=== PATIENT | female | born 1945 | race Caucasian/White ===

== ENCOUNTER 2020-11-28 16:15 | Emergency (ER) | payer MEDICARE, SELFPAY ==
--- NOTE | ~2020-11-28 | XR_ITS ---
EXAMINATION: XR CHEST CLINICAL INFORMATION: Weakness. Dizziness. Chills. COMPARISON: None TECHNIQUE: 2 views of the chest were obtained. FINDINGS: No significant abnormality is noted involving the heart, lungs, mediastinum, bony thorax or soft tissues. XR/XR chest 2V IMPRESSION: Unremarkable examination.
[2020-11-28 17:10] VITALS: BP 194/86; PULSE 79; RESP 16; TEMP 37.1; O2SAT 99; BMI 25.1
--- NOTE | 2020-11-28 17:19 | ECG_ITS ---
Test Reason : WEAKNESS Blood Pressure : / mmHG Vent. Rate : 072 BPM Atrial Rate : 072 BPM P-R Int : 140 ms QRS Dur : 074 ms QT Int : 396 ms P-R-T Axes : 066 -37 052 degrees QTc Int : 433 ms Normal sinus rhythm Left axis deviation Minimal voltage criteria for LVH, may be normal variant Abnormal ECG No previous ECGs available Referred By: Generic ED Physician Electronically Signed By:Mingo Zelaya
[2020-11-28 18:32] LABS: MANUAL DIFF FLAG NO
[2020-11-28 18:40] LABS: Basophils Percent Auto 0.3 % (0-2); Eosinophils Absolute Auto 0.1 X10*3/uL (0.0-0.4); Hematocrit 35.9 % (37-47); Hemoglobin 11.8 g/dl (12.0-16.0); Imm Gran Abs Auto 0.01 X10*3/uL (0.00-0.03); Imm Gran Pct Auto 0.2 % (0.0-0.4); Lymphocytes Absolute Auto 1.8 X10*3/uL (1.2-4.9); Lymphocytes Percent Auto 29.2 % (20-40); Mean Corpuscular HGB Conc 32.9 g/dl (31.0-35.0); Mean Corpuscular Hemoglobin 27.6 pg (27.0-33.0); Mean Corpuscular Volume 84.1 fL (80-98); Mean Platelet Volume 9.9 fL (9.4-12.3); Monocytes Absolute Auto 0.5 X10*3/uL (0.1-1.2); Monocytes Percent Auto 7.4 % (2-11); Neutrophils Absolute Auto 3.7 X10*3/uL (2.0-8.3); Neutrophils Percent Auto 60.9 % (45-73); Platelet Count 246 X10*3/uL (160-400); Red Blood Count 4.27 X10*6/uL (4.20-5.50); Red Cell Distribution Width 12.7 % (11.0-16.0); White Blood Count 6.1 X10*3/uL (4.8-10.8)
[2020-11-28 18:56] LABS: Anion Gap 13 (12-20); Blood Urea Nitrogen 12 mg/dL (9-16); Calcium 9.6 mg/dL (8.4-10.2); Carbon Dioxide 30 mmol/L (22-29); Chloride 99 mmol/L (96-108); Estimated Glomerular Filt Rate > 60; Glucose Random 192 mg/dL (60-115); Potassium 4.4 mmol/L (3.3-5.1); Sodium 138 mmol/L (135-145)
[2020-11-28 20:00] VITALS: BP 194/81; PULSE 76; RESP 16; TEMP 37.2; O2SAT 99
[2020-11-28 20:33] VITALS: BP 194/81; BP 209/79; PULSE 74; PULSE 97
[2020-11-28 20:34] VITALS: BP 205/80; PULSE 77
--- NOTE | 2020-11-28 20:46 | PC.NURSE ---
This is an alert and oriented patient, walked into the emergency room #12 with a standby assist- patient states dizziness began last night and has also had some intermittent nausea and vomiting. Patient placed on the product demonstrator, vital signs obtained, IV placed into the left AC, orthostatic vital signs done, patient has mild diffuse mid abdominal pain. No other complaints at this time.
[2020-11-28 20:53] LABS: Alanine Aminotransferase 14 U/L (0-31); Albumin Level 4.2 g/dL (3.5-5.0); Alkaline Phosphatase 103 U/L (39-117); Aspartate Amino Transferase 15 U/L (5-31); Bilirubin Direct 0.2 mg/dL (0.0-0.5); Bilirubin Total 0.7 mg/dL (0.0-1.0); Lipase 12 U/L (8-78); Total Protein 6.7 g/dL (6.5-8.0)
--- NOTE | 2020-11-28 21:13 | ED.GENADULT ---
HPI - General Adult General Chief complaint: Dizziness Stated complaint: dizzyness,nausea,abdominal pain Time Seen by Provider: 11/28/20 20:37 Source: patient Mode of arrival: ambulatory Limitations: no limitations History of Present Illness HPI narrative: Patient fully COVID-19 vaccinated 1 month ago complaining of dizziness weakness nausea vomiting since yesterday everything started all of a sudden patient does have history of vertigo patient feels everything spinning around no fever no significant abdominal pain patient denies any headache no tinnitus no upper respiratory symptoms no cough or shortness of breath Related Data Previous Rx's Medication Instructions Recorded cefuroxime axetil 500 mg PO BID 7 Days #14 tab 11/28/20 meclizine 25 mg PO TID PRN #20 tab 11/28/20 Allergies Allergy/AdvReac Type Severity Reaction Status Date / Time Penicillins Allergy Anaphylaxis Verified 11/28/20 17:16 Review of Systems Review of Systems: Constitutional : No Weight loss, No Fever, No Chills ENT/Mouth : No sore throat, No Rhinorrhea Eyes: No Eye Pain, No Swelling Cardiovascular : No Chest Pain, no palpitations Respiratory : No Cough, No Sputum, no shortness of breath Gastrointestinal : no Nausea, No Vomiting, No Diarrhea, No abdominal Pain, no black stools Genitourinary : No Dysuria, No Urinary Frequency Musculoskeletal : No joint pain, No Myalgias, No Joint Swelling Skin : No Skin Lesions, No rash Neuro : No Weakness, No Numbness, ++Dizziness, No Headache Psych : No Anxiety/Panic, No Depression Heme/Lymph: No Bruising, No Lymphadenopathy Endocrine : No Polyuria, No Polydipsia All other systems reviewed and are negative FOR[facility]LY [facility] Past Medical History Medical History Diabetes Incontinent of urine Social History Social History Alcohol intake: current Alcohol intake frequency: holidays/special occasions only Alcohol type: beer and wine Smoking Status: Never smoker Smoked in Last 30 Days: No Use of substances other than those prescribed or required for medical reasons: No Advance Directives: No Advance Directives Information Provided: Yes Physical Exam Vital Signs: Vital Signs: Last Vital Signs Temp 98.9 F 11/28/20 20:00 Pulse 79 04/19/21 23:33 Resp 17 11/28/20 23:33 BP 172/75 H 11/28/20 23:33 Pulse Ox 100 11/28/20 23:33 Body Mass Index 25.1 Appearance: Alert. Oriented X3. No acute distress. Eyes: Pupils equal, round and reactive to light. No nystagmus ENT: Pharynx normal. Neck: Normal inspection. Neck supple. CVS: Normal heart rate and rhythm. Pulses normal. Respiratory: No respiratory distress. Breath sounds normal. Abdomen: Soft and nontender. Bowel sounds are present, no mass palpable, no CVA tenderness Skin: Skin warm and dry. Normal skin color. Normal skin turgor. Extremities: No lower extremity edema. No calf tenderness Neuro: Oriented X 3. No motor deficit. No sensory deficit. No cerebellar signs Medical Decision Making MDM Narrative Medical decision making narrative: Patient clinically benign positional vertigo with similar history in the past. Labs stable. Will give meclizine , check urine and re-evaluate Patient's lab workup showed leuko esterase positive in the urine 10-14 wbc's patient denies any symptoms. Will discharge patient home on meclizine and Ceftin patient started feeling better now Lab Data Lab results reviewed: Yes I reviewed the patient's lab results. Result diagrams: 11/28/20 18:14 11/28/20 18:14 Labs: Lab Results 11/28/20 11/28/20 11/28/20 Range/Units 18:14 18:14 18:14 WBC 6.1 (4.8-10.8) X10*3/uL RBC 4.27 (4.20-5.50) X10*6/uL Hgb 11.8 L (12.0-16.0) g/dl Hct 35.9 L (37-47) % MCV 84.1 (80-98) fL MCH 27.6 (27.0-33.0) pg MCHC 32.9 (31.0-35.0) g/dl RDW 12.7 (11.0-16.0) % Plt Count 246 (160-400) X10*3/uL MPV 9.9 (9.4-12.3) fL Immature Gran % (Auto) 0.2 (0.0-0.4) % Neut % (Auto) 60.9 (45-73) % Lymph % (Auto) 29.2 (20-40) % Jessamine % (Auto) 7.4 (2-11) % Eos % (Auto) 2.0 (0-4) % Baso % (Auto) 0.3 (0-2) % Lymph # (Auto) 1.8 (1.2-4.9) X10*3/uL Jessamine # (Auto) 0.5 (0.1-1.2) X10*3/uL Eos # (Auto) 0.1 (0.0-0.4) X10*3/uL Baso # (Auto) 0.0 (0.0-0.2) X10*3/uL Abs Immat Gran (auto) 0.01 (0.00-0.03) X10*3/uL Absolute Neuts (auto) 3.7 (2.0-8.3) X10*3/uL Absolute Nucleated RBC 0.000 (0.0-0.012) X10*3/uL Nucleated RBC % (auto) 0.0 (0.0-0.2) /100WBC Hold Purple Top SEE NOTE Hold Blue Top Sodium 138 (135-145) mmol/L Potassium 4.4 (3.3-5.1) mmol/L Chloride 99 (96-108) mmol/L Carbon Dioxide 30 H (22-29) mmol/L Anion Gap 13 (12-20) BUN 12 (9-16) mg/dL Creatinine 0.72 (0.5-1.4) mg/dL Estim Creat Clear Calc 58.0 Estimated GFR > 60 Random Glucose 192 H (60-115) mg/dL Calcium 9.6 (8.4-10.2) mg/dL Total Bilirubin 0.7 (0.0-1.0) mg/dL Direct Bilirubin 0.2 (0.0-0.5) mg/dL AST 15 (5-31) U/L ALT 14 (0-31) U/L Alkaline Phosphatase 103 (39-117) U/L Total Protein 6.7 (6.5-8.0) g/dL Albumin 4.2 (3.5-5.0) g/dL Lipase 12 (8-78) U/L Urine Color Urine Appearance Urine pH (5.0-8.0) Ur Specific Glide (1.005-1.025) Urine Protein (NEG-TRACE) MG/DL Urine Glucose (UA) (NEG) MG/DL Urine Ketones (NEG) MG/DL Urine Blood (NEG) Urine Nitrite (NEG) Ur Leukocyte Esterase (NEG) Urine RBC (0) /HPF Urine WBC (0-4) /HPF Ur Squamous Epith Cells /LPF Urine Bacteria /LPF COVID-19 (LOIS) (Negative) COVID-19 Clin Com 11/28/20 11/28/20 11/28/20 Range/Units 18:14 21:44 21:44 WBC (4.8-10.8) X10*3/uL RBC (4.20-5.50) X10*6/uL Hgb (12.0-16.0) g/dl Hct (37-47) % MCV (80-98) fL MCH (27.0-33.0) pg MCHC (31.0-35.0) g/dl RDW (11.0-16.0) % Plt Count (160-400) X10*3/uL MPV (9.4-12.3) fL Immature Gran % (Auto) (0.0-0.4) % Neut % (Auto) (45-73) % Lymph % (Auto) (20-40) % Jessamine % (Auto) (2-11) % Eos % (Auto) (0-4) % Baso % (Auto) (0-2) % Lymph # (Auto) (1.2-4.9) X10*3/uL Jessamine # (Auto) (0.1-1.2) X10*3/uL Eos # (Auto) (0.0-0.4) X10*3/uL Baso # (Auto) (0.0-0.2) X10*3/uL Abs Immat Gran (auto) (0.00-0.03) X10*3/uL Absolute Neuts (auto) (2.0-8.3) X10*3/uL Absolute Nucleated RBC (0.0-0.012) X10*3/uL Nucleated RBC % (auto) (0.0-0.2) /100WBC Hold Purple Top Hold Blue Top SEE NOTE Sodium (135-145) mmol/L Potassium (3.3-5.1) mmol/L Chloride (96-108) mmol/L Carbon Dioxide (22-29) mmol/L Anion Gap (12-20) BUN (9-16) mg/dL Creatinine (0.5-1.4) mg/dL Estim Creat Clear Calc Estimated GFR Random Glucose (60-115) mg/dL Calcium (8.4-10.2) mg/dL Total Bilirubin (0.0-1.0) mg/dL Direct Bilirubin (0.0-0.5) mg/dL AST (5-31) U/L ALT (0-31) U/L Alkaline Phosphatase (39-117) U/L Total Protein (6.5-8.0) g/dL Albumin (3.5-5.0) g/dL Lipase (8-78) U/L Urine Color YELLOW Urine Appearance CLEAR Urine pH 6.0 (5.0-8.0) Ur Specific Glide 1.010 (1.005-1.025) Urine Protein NEG (NEG-TRACE) MG/DL Urine Glucose (UA) >=1000 H (NEG) MG/DL Urine Ketones NEG (NEG) MG/DL Urine Blood TRACE (NEG) Urine Nitrite NEG (NEG) Ur Leukocyte Esterase 1+ H (NEG) Urine RBC 1-4 (0) /HPF Urine WBC 10-14 H (0-4) /HPF Ur Squamous Epith Cells 2+ /LPF Urine Bacteria NONE /LPF COVID-19 (LOIS) Negative (Negative) COVID-19 Clin Com See Note Discharge Plan Discharge Clinical Impression: Benign paroxysmal positional vertigo, Acute UTI Patient Disposition: Home, Self-Care Instructions: Urinary Tract Infection in Women (ED), Benign Paroxysmal Positional Vertigo (ED) Prescriptions: New meclizine 25 mg tablet 25 mg PO TID PRN (Reason: dizziness) Qty: 20 RF: 0 cefuroxime axetil 500 mg tablet 500 mg PO BID 7 Days Qty: 14 RF: 0 Interventions: ED Discharge Assessment Last Done: 11/28/20 23:40 Discharge Date/Time: 11/28/20 23:41
[2020-11-28] MEDS: Meclizine HCl 25 MG TABLET 50 MG PO (21:37)
[2020-11-28 21:38] VITALS: BP 184/66; PULSE 73; RESP 12; O2SAT 99
[2020-11-28 21:56] LABS: Glucose Urine UA >=1000 MG/DL (NEG); Leukocyte Esterase Urine 1+ (NEG); Nitrite Urine NEG (NEG); UACC Culture Trigger YES; Urine Blood TRACE (NEG); Urine Ketones NEG (NEG); Urine Protein NEG (NEG-TRACE)
[2020-11-28 21:58] LABS: Appearance Urine CLEAR; Color Urine YELLOW
[2020-11-28 22:04] LABS: Squamous Epithelial Cell Urine 2+ /LPF
[2020-11-28 22:10] LABS: COVID-19 Test Negative (Negative); IDNOW Serial# 9DD0AD1C
[2020-11-28 23:33] VITALS: BP 172/75; PULSE 79; RESP 17; O2SAT 100
== END 2020-11-28 23:41 | disposition home or self-care (01) ==
PROVIDERS: Nurse Practitioner Family; Emergency Provider Internal Medicine
DX: H81.10 Benign paroxysmal vertigo, unspecified ear (principal); N39.0 Urinary tract infection, site not specified; E11.9 Type 2 diabetes mellitus without complications
CPT/HCPCS: 36415; 71046; 80048; 80076; 81001; 81003; 83690; 85025; 87086; 87147; 87635; 93005; 99283; 99285

== ENCOUNTER 2021-07-12 09:29 | Day surgery (SDC) | payer MEDICARE, SELFPAY ==
[2021-07-04 08:44] VITALS: BMI 23.6
--- NOTE | 2021-07-11 11:48 | P.CONAN_ITS ---
Documented by User: Ronit Khalil NP 07/11/21 11:50 HPI - Anesthesia Eval Consult details Narrative: 75yo F for Right Eye Muscle Recession/Resection, 1 horizontal muscle PCP cleared [facility] Past Medical History Medical History Arthritis Concussion COVID-19 vaccine series completed Diabetes GERD (gastroesophageal reflux disease) Urinary incontinence Vertigo Surgical History Surgical History History of bladder surgery Hx of cataract surgery Hx of foot surgery Hx of hand surgery Social History Social History Household Members Other:: father lives with patient Are you a primary residential care officer to a significant other at home: No Do you presently have visiting nurse or other home services: No Alcohol intake: current Alcohol intake frequency: does not drink Alcohol type: beer and wine Patient Tobacco Use Status: Never used Tobacco Use of substances other than those prescribed or required for medical reasons: No Have you been hit, kicked, punched, or otherwise hurt by someone within the past year? If so, by whom?: No Are you DNR?: Yes Advance Directives: No Advance Directives Information Provided: Yes (as above noted) Advance Directives on File: No Recently lost weight without trying: No Eating poorly because of decreased appetite: No Nutrition Risks: No Nutritional Risk Poor oral hygiene: No (lower partial) Meds Allergies Allergy/AdvReac Type Severity Reaction Status Date / Time Penicillins Allergy Severe Anaphylaxis Verified 07/12/21 10:14 Home Medications Medication Instructions Recorded Confirmed Last Taken Type acetaminophen 500 mg tablet 500 mg PO BEDTIME 07/04/21 07/04/21 Unknown History fluoxetine 10 mg tablet 1 tab PO DAILY 07/04/21 07/04/21 Unknown History glipizide 2.5 mg tablet, extended 2 tab PO BID 07/04/21 07/04/21 Unknown History release 24 hr lisinopril 5 mg tablet 1 tab PO BEDTIME 07/04/21 07/04/21 Unknown History metformin 1,000 mg tablet 1 tab PO BID 07/04/21 07/04/21 Unknown History omeprazole 20 mg capsule,delayed 1 cap PO DAILY 07/04/21 07/04/21 Unknown History release rosuvastatin 5 mg tablet 1 tab PO DAILY 07/04/21 07/04/21 Unknown History trospium 60 mg capsule,extended 1 cap PO QAM 07/04/21 07/04/21 Unknown History release 24 hr Exam Exam Date and Time: July 11, 2021 1148 Height,Weight and Vital Signs: Height 5 ft 1 in Weight 56.699 kg Narrative Narrative: EKG 11/2020 Vent. Rate : 072 BPM ? ? Atrial Rate : 072 BPM ?? P-R Int : 140 ms? QRS Dur : 074 ms ? ? QT Int : 396 ms ? ? ? P-R-T Axes : 066 -37 052 degrees ?? QTc Int : 433 ms ? Normal sinus rhythm Left axis deviation Minimal voltage criteria for LVH, may be normal variant Abnormal ECG No previous ECGs available Assessment and Plan Assessment Anesthesia Assessment: Chart Reviewed Documented by User: Janiya Fraser MD 07/12/21 12:48 [facility] Active Problems Active Problems: Depression Hyperlipidemia Past Medical History Medical History Arthritis Concussion COVID-19 vaccine series completed Diabetes GERD (gastroesophageal reflux disease) Urinary incontinence Vertigo Family History Family history of problems with anesthesia: No Surgical History Surgical History History of bladder surgery Hx of cataract surgery Hx of foot surgery Hx of hand surgery History of Problems with Anesthesia: No Social History Social History Household Members Other:: father lives with patient Are you a primary residential care officer to a significant other at home: No Do you presently have visiting nurse or other home services: No Alcohol intake: current Alcohol intake frequency: does not drink Alcohol type: beer and wine Patient Tobacco Use Status: Never used Tobacco Use of substances other than those prescribed or required for medical reasons: No Have you been hit, kicked, punched, or otherwise hurt by someone within the past year? If so, by whom?: No Are you DNR?: Yes Advance Directives: No Advance Directives Information Provided: Yes (as above noted) Advance Directives on File: No Recently lost weight without trying: No Eating poorly because of decreased appetite: No Nutrition Risks: No Nutritional Risk Poor oral hygiene: No (lower partial) Meds Allergies Allergy/AdvReac Type Severity Reaction Status Date / Time Penicillins Allergy Severe Anaphylaxis Verified 07/12/21 10:14 Home Medications Medication Instructions Recorded Confirmed Last Taken Type acetaminophen 500 mg tablet 500 mg PO BEDTIME 07/04/21 07/04/21 Unknown History fluoxetine 10 mg tablet 1 tab PO DAILY 07/04/21 07/04/21 Unknown History glipizide 2.5 mg tablet, extended 2 tab PO BID 07/04/21 07/04/21 Unknown History release 24 hr lisinopril 5 mg tablet 1 tab PO BEDTIME 07/04/21 07/04/21 Unknown History metformin 1,000 mg tablet 1 tab PO BID 07/04/21 07/04/21 Unknown History omeprazole 20 mg capsule,delayed 1 cap PO DAILY 07/04/21 07/04/21 Unknown History release rosuvastatin 5 mg tablet 1 tab PO DAILY 07/04/21 07/04/21 Unknown History trospium 60 mg capsule,extended 1 cap PO QAM 07/04/21 07/04/21 Unknown History release 24 hr Exam Height,Weight and Vital Signs: Height 5 ft 1 in Weight 56.699 kg Vital Signs Temp Pulse Resp BP Pulse Ox 07/12/21 10:28 97.3 F 86 16 130/61 97 Pertinent Lab Results Pertinent Lab Results: Lab Results 07/12/21 Range/Units 10:39 POC Glucose 131 H (60-115) mg/dL Airway Mallampati Class: II TM Dist: >3cm Neck ROM: Full Loose/Missing/Broken Teeth: No Heart: RRR Lungs: CTAB Assessment and Plan Assessment Anesthesia Assessment: Anesthesia Plan Discussed Final Anesthetic Review Family History of Problems with Anesthesia: No History of Problems with Anesthesia: No NPO: Yes ASA Class: II Final Preanesthetic Review: No Changes in Pt Med Stat, Meds/Allgs Chart Reviewed, Consent Obtained/Reviewed and Anes Risks/Benef Reviewed Patient Risk: Low Procedure Risk: Low Assessment/Block/Sedation in SS: Assess/Block/Sedation-SS Anesthetic Plan Anesthetic Plan: GA Disposition: Standard PACU
[2021-07-12] VITALS (7 sets, daily range): BP systolic 123–146; BP diastolic 43–61; PULSE 67–86; RESP 15–16; TEMP 36.1–36.4; O2SAT 95–98
[2021-07-12] MEDS: Lactated Ringers 1,000 ML 100 ML IVCONT (10:41)
[2021-07-12 10:43] LABS: Glucose, Whole Blood 131 mg/dL (60-115)
--- NOTE | 2021-07-12 10:45 | PC.NURSE ---
Patient unable to remove one ring. Educated on risks of going into OR with it on. Patient aware. Ring taped.
[2021-07-12] MEDS: Tetracaine HCl/PF 0.5% Oph Sol 4 ML DROPS 1 DROP EYE-RIGHT (13:26)
--- NOTE | 2021-07-24 14:06 | HO.OPHTHAL ---
Ophthalmology Operative Note Date of Service: 07/24/21 Narrative: Diagnosis esotropia. procedure recession of right medial rectus muscle [address] Galicia. Anesthesia general. Complications none. The patient was brought to the operating room and placed under general anesthesia. The patient's right eye was prepped and draped in the usual sterile ophthalmic fashion. A lid speculum was placed in the eye and a peritomy was created around the medial rectus muscle. The muscle was then hooked and secured with a double-armed Vicryl suture. It was disinserted from the globe and reattached to a position 4 mm behind the original insertion using a hang back technique. Conjunctiva was closed with interrupted Vicryl sutures. The patient was then awoken from general anesthesia and discharged to postoperative recovery in good condition.
== END 2021-07-12 14:34 | disposition home or self-care (01) ==
PROVIDERS: PCP Family Medicine; Visit Provider Ophthalmology
PROC: (CPT 67311; principal; 2021-07-12 11:00)
DX: H50.00 Unspecified esotropia (principal); H53.2 Diplopia; I10 Essential (primary) hypertension; R42 Dizziness and giddiness; Z87.820 Personal history of traumatic brain injury; E78.5 Hyperlipidemia, unspecified; E11.9 Type 2 diabetes mellitus without complications; Z66 Do not resuscitate; Z79.84 Long term (current) use of oral hypoglycemic drugs; Z79.899 Other long term (current) drug therapy
CPT/HCPCS: 67311; 82947; J2405; J3010